=== PATIENT | female | born 1970 | race Caucasian/White ===

== ENCOUNTER → 2021-07-10 13:23 | Outpatient (BNVA) | payer OTHER, SELFPAY | PROVIDERS: Referring Provider Nurse Practitioner; Visit Provider Orthopaedic Surgery | DX: M47.892 Other spondylosis, cervical region (principal); M47.896 Other spondylosis, lumbar region; M54.2 Cervicalgia; M54.6 Pain in thoracic spine; M54.50 Low back pain, unspecified | CPT/HCPCS: 72050; 72072; 72110 ==

== ENCOUNTER 2021-08-21 12:52 | Outpatient (CLI) | payer OTHER, SELFPAY ==
--- NOTE | 2021-08-21 13:00 | MR_ITS ---
WS: [id number] MRI CERVICAL SPINE NONCONTRAST HISTORY: CERVICALGIA COMPARISON: None available. Technique: Multiplanar, multisequence noncontrast imaging of the cervical spine. Mild straightening of the normal cervical lordosis. Disc spaces are moderately narrowed and desiccated with endplate osteophytes throughout the cervical spine. There is osteophyte encroachment upon the ventral cervical cord at the C4-5 and C5-6 and C6-7 levels. Signal within the cord is normal. Craniocervical junction, C1 and C2 relationship, odontoid process and soft tissues are normal. C2-C3: LEFT foraminal osteophyte and disc protrusion contributing to mild LEFT foraminal stenosis. C3-C4: Mild annular disc bulging with small foraminal osteophytes. Very mild central and bilateral fo raminal stenosis. C4-C5: Mild diffuse annular disc bulging with osteophytic ridging. Mild central stenosis. Moderate si ze disc osteophyte complex extends into the LEFT foramen causing moderate LEFT foraminal stenosis. Sm aller disc osteophyte complex in the RIGHT foramen causing mild RIGHT foraminal stenosis. C5-C6: Mild diffuse osteophytic ridging and annular disc bulging. Mild central stenosis. Disc osteoph yte complex extends into the proximal RIGHT foramen causing a moderate RIGHT foraminal stenosis and m ild LEFT foraminal stenosis. C6-C7: Mild osteophytic ridging and annular disc bulging. Mild central stenosis. Moderate RIGHT and m ild LEFT foraminal stenosis. C7-T1: Normal. Paraspinal soft tissue are normal. MR/MR cervical spin wo con* [id number] IMPRESSION: 1. Multilevel spondylitic disease with multilevel areas of various stenosis. 2. Mild central stenosis at C4-5, C5-6 and C6-7. 3. Moderate LEFT foraminal stenosis at C4-5 due to a moderate-sized disc osteo phyte complex. Only mild foraminal narrowing on the RIGHT. 4. Moderate RIGHT foraminal stenosis at C5-6 due to disc and osteophyte comple x. Mild LEFT foraminal stenosis. 5. Moderate RIGHT foraminal stenosis at C6-7 due to disc osteophyte complex. M ild LEFT foraminal stenosis. 6. Mild LEFT foraminal stenosis at C2-3 and mild bilateral foraminal stenosis at C3-4.
--- NOTE | 2021-08-21 13:45 | MR_ITS ---
WS: [id number] MRI LUMBAR SPINE NONCONTRAST HISTORY: DORSALGIA COMPARISON: None available. TECHNIQUE: Sagittal and axial multisequence imaging is submitted. Mild thoracolumbar scoliosis. At T10-11 facet joint arthritis is encroaching into the posterior theca l sac abutting the distal thoracic cord to the RIGHT of midline. 5 mm anterolisthesis of L5. No marrow edema or fracture. Moderate disc space desiccation at L3-4 through L5-S1. Conus terminates normally at T12. L1-L2: Mild bilateral facet joint and ligamentum flavum hypertrophy. No stenosis. L2-L3: Mild bilateral ligamentum flavum and facet arthritis. No significant stenosis. L3-L4: Moderate bilateral ligamentum flavum and facet arthritis with fluid in the facet joints. No si gnificant stenosis or nerve root encroachment. L4-L5: Mild annular disc bulging. There is a very tiny central disc protrusion with annular fissure n ot contacting the thecal sac. Moderate ligamentum flavum and facet arthritis encroaching into the the donaldo sac. Mild central stenosis along the superior endplate of L5. Mild foraminal narrowing. L5-S1: Mild unroofing of the distal the anterolisthesis of L5. Moderate ligamentum flavum hypertrophy and facet joint arthritis. Disc and facet disease encroaching into the lateral recesses and proximal foramen bilaterally but greatest on the LEFT. Moderate to severe LEFT subarticular and foraminal prabhjot nosis and mild to moderate on the RIGHT. Paravertebral soft tissues are negative. MR/MR lumbar spine wo con* [id number] IMPRESSION: 1. L5 anterolisthesis by 5 mm. 2. Anterolisthesis of L5 with facet and ligamentum flavum hypertrophy resultin g in moderate to severe LEFT subarticular and foraminal stenosis and mild to mo derate on the RIGHT. There is encroachment upon the L5 and S1 nerve roots. 3. Mild central stenosis at L4-5 with mild foraminal narrowing. 4. Moderate facet joint arthritis at L3-4, L4-5 and L5-S1.
== END 2021-08-21 12:53 | disposition home or self-care (01) ==
PROVIDERS: Visit Provider Orthopaedic Surgery
DX: M48.061 Spinal stenosis, lumbar region without neurogenic claudication (principal); M47.816 Spondylosis without myelopathy or radiculopathy, lumbar region; M47.817 Spondylosis without myelopathy or radiculopathy, lumbosacral region; M48.02 Spinal stenosis, cervical region; M25.78 Osteophyte, vertebrae
CPT/HCPCS: 72141; 72148